=== PATIENT | female | born 1990 | race Caucasian/White ===

== ENCOUNTER 2016-11-20 18:04 | Inpatient (IN) | payer OTHER ==
[~2016-11-20] VITALS: Ht 172.7 cm; Wt 113.4 kg
[2016-11-20] MEDS ORDERED: LIDOCAINE HCL 1% 50 ML VIAL INFIL PRN (19:15)
[2016-11-20] MEDS ORDERED: OXYTOCIN 30 UNITS-500ML PREMIX 500 ML IV ONE (19:15)
[2016-11-20] MEDS ORDERED: LIDOCAINE HCL 1% 50 ML VIAL I-DERMAL PRN (19:15)
[2016-11-20] MEDS ORDERED: ONDANSETRON HCL 4 MG/2 ML VIAL IV PRN (19:15)
[2016-11-20] MEDS ORDERED: SODIUM CHLORID 0.9% 500 ML INJ 500 ML IV PRN (19:15)
[2016-11-20] MEDS ORDERED: CITRIC ACID-SODIUM CITRATE LIQ 30 ML UDC PO SCH (19:15)
[2016-11-20] MEDS ORDERED: MINERAL OIL 10 ML VIAL TOPICAL PRN (19:15)
[2016-11-20] MEDS ORDERED: LACTATED RINGER'S 1000 ML INJ 1,000 ML IV PRN (19:15)
--- NOTE | 2016-11-20 19:19 | HHI.HP ---
HPI Chief Complaint scheduled term labor induction, non-reassuring testing in office Date Seen: Nov 20, 2016 Time Seen: 18:45 Travel History International Travel<30 Days: No Contact w/Intl Traveler<30Days: No Known Affected Area: No History of Present Illness HPI 26 yo with EDC 11/24/16, late transfer () to our practice at 37w2d. On initial office evaluation on 11/05/16 EFW 96.7%tile and borderline polyhydramnios. Due to this finding patient was scheduled for weekly testing, today in office abnormal dopplers, slightly increased flow, but 8/8 BPP. Discussed findings with patient and her , counseled on need for labor induction and risk of failed induction, risk of failure, especially given size greater than dates, primiparous status, and suspected CPD. Pt has no complaints other than pelvic pressure, has no regular contractions, no VB, reports good movement. Pain 2/10. Para: 0 : 2 Miscarriage: 0 : 0 History Past Medical History Narrative Medical obesity Past Surgical History Surgical History: No Previous Surgery Family History Family History: Negative Social History Alcohol Use: No Tobacco Use: No Substance Abuse: No Allergies-Medications (Allergen,Severity, Reaction): Coded Allergies: No Known Allergies (Unverified , 11/20/16) Review of Systems General / Constitutional: Weight Gain, No: Fever, Chills, Other Eyes: No: Diploplia, Blurred Vision, Visual changes, Pain, Photophobia HENT: No: Headaches, Vertigo, Lightheadedness Cardiovascular: No: Irregular Rhythm, Chest Pain or Discomfort, Palpitations, Tachycardia, Syncope, Varicosities, Edema, Cyanosis Respiratory: No: Cough, Short of Breath, Other Gastrointestinal: No: Nausea, Vomiting, Diarrhea Genitourinary: Pelvic Pain, No: Decreased Urinary Output, Oliguria Musculoskeletal: No: Limited ROM, Weakness, Cramping, Edema, Pain Skin: No Rash, No Itching, No Dryness, No Lumps, No Change in Pigmentation, No Change in Nails, No Alopecia, No Lesions Neurologic: No: Weakness, Dizziness, Syncope, Focal Abnormalities, Coordination Problem, Headache, Slurred Speech, Seizures Psychiatric: No: Depression, Suicidal Ideations, Homicidal Ideation Endocrine: No: Heat Intolerance, Cold Intolerance, Polydipsia, Polyuria, Other Physical Exam see [facility] [place] Narrative GENERAL: Well-nourished, well-developed patient. SKIN: Warm and dry. HEAD: Normocephalic and atraumatic. EYES: No scleral icterus. No injection or drainage. ENT: No nasal drainage noted. Mucous membranes pink. Airway patent. NECK: Supple, trachea midline. No JVD. CARDIOVASCULAR: Regular rate and rhythm without murmurs, gallops, or rubs. RESPIRATORY: Breath sounds equal bilaterally. No accessory muscle use. BREASTS: deferred ABDOMEN/GI: Abdomen soft, non-tender, bowel sounds present, no rebound, no guarding Gravid to [40] weeks size Fundal Height: [41] GENITOURINARY: External Genitalia: intact and normal in appearance BUS glands: [wnl] Cervix: [posterior] Dilatation: [cl] Effacement: [th] Station: [-3] Presentation: [vtx] Membranes: [intact] Uterine Contractions: [irregular] FHT's: 8/8 BPP EXTREMITIES: No cyanosis or edema. BACK: Nontender without obvious deformity. No CVA tenderness. NEUROLOGICAL: Awake and alert. Motor and sensory grossly within normal limits. Five out of 5 muscle strength in all muscle groups. Normal speech. Data Data Vital Signs Reviewed: Yes Assessment/Plan Problem List: (1) Labor and delivery indication for care or intervention (2) macrosomia in in third trimester (3) Obesity complicating Assessment and Plan 26 yo with joseph IUP at 39w3d admit for term labor induction for abnormal testing in office 1) IOL: increased dopplers but 8/8 BPP; pt borderline polyhydramnios, S>D, narrow pelvis, pt aware of risk of failed induction and risk of need for ; will plan cervidil overnight and addt'l induction methods as needed in AM 2) GBS negative 3) S>D: EFW 8#4oz 2 weeks ago, aware 4) obese: normal 1h GTT 5) status: increased dopplers but 8/8 BPP, vertex, EFW >9# Discharge Planning routine for 2-3d PP Asia Cabrales MD Nov 20, 2016 19:19
[2016-11-20] MEDS ORDERED: SODIUM CHLOR 0.9% 1000 ML INJ 1,000 ML IV PRN (19:35)
[2016-11-20] MEDS: LACTATED RINGER'S 1000 ML INJ 1,000 ML IV SCH (19:43)
[2016-11-20] MEDS ORDERED: DINOPROSTONE 10 MG INSERT-LEAVE FOR 12 HOURS VAGINAL ONE (19:45)
[2016-11-20 19:52] LABS: AUTOMATED NEUTROPHIL # 8.5 TH/MM3 (1.8-7.7); BASOPHIL % 0.4 % (0.0-2.0); EOSINOPHIL # 0.1 TH/MM3 (0-0.4); EOSINOPHIL % 0.5 % (0.0-4.0); HEMATOCRIT 38.4 % (35.0-46.0); HEMO FLAGS DIFF FINAL; LYMPH % 22.3 % (9.0-44.0); LYMPHOCYTE # 2.8 TH/MM3 (1.0-4.8); MEAN CELL VOLUME 90.5 FL (80.0-100.0); MEAN CORPUSCULAR HEMOGLOBIN 29.9 PG (27.0-34.0); MEAN CORPUSCULAR HGB CONC 33.1 % (32.0-36.0); MONO % 7.7 % (0.0-8.0); NEUT % 69.1 % (16.0-70.0); PLATELET COUNT 308 TH/MM3 (150-450); RED BLOOD COUNT 4.25 MIL/MM3 (4.00-5.30); RED CELL DISTRIBUTION WIDTH 13.9 % (11.6-17.2); WHITE BLOOD COUNT 12.4 TH/MM3 (4.0-11.0)
[2016-11-20 19:56] VITALS: BP 139/86; PULSE 72
[2016-11-20 20:00] VITALS: RESP 20; TEMP 98.4
[2016-11-20 20:02] LABS: BLOOD, URINE MOD (NEG); CALCIUM OXALATE CRYSTALS,URINE FEW /hpf; COMMENT (UR) CULTURE INDICATED; CULTURE IF INDICATED CULTURE INDICATED; GLUCOSE,URINE NEG (NEG); KETONE, URINE NEG (NEG); MUCUS URINE FEW /lpf (OCC); NITRITE,URINE NEG (NEG); SQUAMOUS EPITHELIAL CELL URINE 1 /hpf (0-5); URINE COLOR YELLOW (YELLW/STRAW)
[2016-11-20] MEDS ORDERED: ZOLPIDEM TARTRATE 10 MG TAB PO PRN (21:00)
[2016-11-20 21:15] VITALS: RESP 18
[2016-11-20 21:54] VITALS: BP 116/65; PULSE 64
[2016-11-20 21:55] VITALS: RESP 18; TEMP 98.7
[2016-11-20] MEDS ORDERED: PREN29TA PO (22:02)
[2016-11-21] VITALS (66 sets, daily range): BP systolic 94–147; BP diastolic 47–99; PULSE 50–89; RESP 12–24; TEMP 98.1–99.5; O2SAT 93–100
[2016-11-21] MEDS ORDERED: ACETAMINOPHEN 325 MG TAB PO PRN ×2 (02:15→20:30)
[2016-11-21] MEDS ORDERED: fentaNYL 2MCG-BUPIV 0.125% INJ 100 ML ONE ×2 (03:01→09:48)
[2016-11-21] MEDS: LACTATED RINGER'S 1000 ML INJ 1,000 ML IV SCH ×2 (07:55→13:45)
[2016-11-21] MEDS ORDERED: OXYTOCIN 30 UNITS/NS 500ML PREMIX IV SCH (09:00)
[2016-11-21] MEDS ORDERED: DO NOT ADMINISTER ANTICOAGULANTS PRN (10:15)
[2016-11-21] MEDS ORDERED: ePHEDrine/NS 25 MG/5 ML SYR IV PRN (10:15)
[2016-11-21] MEDS ORDERED: NO SYSTEM NARCOTICS PRN (10:15)
[2016-11-21] MEDS: fentaNYL 2MCG-BUPIV 0.125% 100 ML EPIDURAL SCH ×2 (10:51→15:03)
--- NOTE | 2016-11-21 14:01 | PD.LABORPN ---
Subjective Subjective pt feeling back pain Objective Vital Signs Vital Signs Date Time Temp Pulse Resp B/P Pulse Ox O2 Delivery O2 Flow Rate FiO2 11/21/16 13:31 62 120/73 11/21/16 13:00 75 138/84 11/21/16 12:39 98.1 11/21/16 12:31 76 121/74 11/21/16 12:01 66 131/77 11/21/16 11:31 61 124/73 11/21/16 11:01 67 113/74 11/21/16 10:51 16 11/21/16 10:31 63 118/68 11/21/16 10:00 69 132/92 11/21/16 09:45 16 11/21/16 09:45 98.3 11/21/16 09:31 80 121/82 11/21/16 09:01 77 129/76 11/21/16 08:30 80 138/90 11/21/16 08:01 78 124/87 11/21/16 07:31 87 127/87 11/21/16 06:37 18 11/21/16 06:30 82 11/21/16 06:30 115/81 11/21/16 06:00 70 132/80 Objective Pelvic Exam: Cervix: 860/-2 Presentation:ceph Membranes: [ ruptured] Uterine Contractions:adequate mvu FHT's: Category: I Baseline: 1330 Reactive:y Variability:mod Decels: [-] Bloody urine Assessment/Plan Problem List: (1) Labor and delivery indication for care or intervention (2) macrosomia in in third trimester (3) Obesity complicating Assessment and Plan 26 yo with joseph IUP at 39w4d admit for term labor induction for abnormal testing in office 1) IOL: increased dopplers but 8/8 BPP; pt borderline polyhydramnios, S>D, narrow pelvis, pt aware of risk of failed induction and risk of need for . Pt declined primary cd and elected induction. She is s/p cervidil, arom, and is on pitocin now. She is 8/60/-2, head is not applied to cervix. Discussed failure of descent may be likely. 3) S>D: EFW 8#4oz 2 weeks ago, aware 4) obese: normal 1h GTT 5) status: increased dopplers but 8 BPP, vertex, EFW >9# Rosa Mcgregor MD Nov 21, 2016 14:01
[2016-11-21] MEDS ORDERED: LACTATED RINGER'S 1000 ML INJ 1,000 ML IV ONE ×2 (15:06→20:59)
[2016-11-21] MEDS ORDERED: LACTATED RINGER'S 1000 ML INJ 1,000 ML IV SCH (15:36)
[2016-11-21] MEDS ORDERED: ceFAZolin 2 GM PREMIX 50 ML IV SCH (16:15)
[2016-11-21] MEDS ORDERED: CITRIC ACID-SODIUM CITRATE LIQ 30 ML UDC PO SCH (16:45)
[2016-11-21] MEDS ORDERED: OXYTOCIN 10 UNIT/ML AMP ONE (19:17)
[2016-11-21] MEDS ORDERED: ONDANSETRON HCL 4 MG/2 ML VIAL ONE (19:17)
[2016-11-21] MEDS ORDERED: ACETAMINOPHEN 1000 MG/100 ML VIAL IV ONE ×2 (19:17→20:30)
[2016-11-21] MEDS ORDERED: METHYLERGONOVINE MALEATE 0.2 MG/ML VIAL ONE (19:49)
[2016-11-21] MEDS ORDERED: MISOPROSTOL 200 MCG TAB ONE (19:49)
[2016-11-21] MEDS ORDERED: EPIDURAL-NO SYSTEMIC NARCOTICS PRN (20:00)
[2016-11-21] MEDS ORDERED: EPIDURAL-NALOXONE HCL 0.4 MG/ML AMP IV PRN (20:00)
[2016-11-21] MEDS ORDERED: EPIDURAL-DIPHENHYDRAMINE HCL 50 MG/ML VIAL IV PUSH PRN (20:00)
[2016-11-21] MEDS ORDERED: EPIDURAL-DO NOT ADMINISTER ANTICOAGULANTS PRN (20:00)
[2016-11-21] MEDS ORDERED: EPIDURAL-DIPHENHYDRAMINE HCL 50 MG CAP PO PRN (20:00)
--- NOTE | 2016-11-21 20:22 | PD.OB.DELI ---
Procedure Note Section Procedure Pre Op Diagnosis: (1) Arrested labor (2) Obesity complicating Post Op Diagnosis: (1) Arrested labor (2) Obesity complicating Performed by Rosa Mcgregor Procedure: Primary Low Transverse Sec Indication for delivery: malposition (OP), Other (arrest of dilation) Informed consent obtained: For anesthesia, For procedure Confirmed correct: Patient, Procedure, Site, Time-out taken Anesthesia: Epidural Medication prior to procedure: As documented in eMAR Monitoring during procedure: Blood pressure monitoring, Pulse oximetry Urinary catheter: ml urine output (200) Sterile preparation: Duraprep Position: Supine with wedge to right side, Supine with safety belt applied Operative Features Skin Incision: Pfannenstiel Uterine Incision: Low transverse w/knife / blunt ext Membranes Ruptured: Previously, Appearance of fluid (clear) Presentation: Occiput posterior (asynclitic ) Delivery of : Uneventful : Male One Minute : 9 Five Minute : 9 Weight: 8 lb Status of infant: Viable Placenta delivered: Intact Medications: Antibiotics, Oxytocin, Ergot derivatives Estimated blood loss: 300ml Procedure tolerated: Well Maternal Complications: Uterine atony (methergine given) Maternal Condition: Stable Condition: Stable Procedure in detail dictated Rosa Mcgregor MD Nov 21, 2016 20:22
[2016-11-21] MEDS ORDERED: OXYTOCIN 30 UNITS-500ML PREMIX 500 ML IV ONE (20:30)
[2016-11-21] MEDS ORDERED: ONDANSETRON HCL 4 MG/2 ML VIAL IV PUSH PRN (20:30)
[2016-11-21] MEDS ORDERED: SODIUM CHLORIDE 0.9% FLUSH 10 ML FLUSH IV FLUSH PRN (20:30)
[2016-11-21] MEDS ORDERED: oxyCODONE/ACETAMINOPHEN 5 MG/325 MG TAB PO PRN (20:30)
[2016-11-21] MEDS ORDERED: ZOLPIDEM TARTRATE 5 MG TAB PO PRN (20:30)
[2016-11-21] MEDS ORDERED: DOCUSATE SODIUM 50 MG/SENNA 8.6 MG TAB PO PRN (20:30)
[2016-11-21] MEDS ORDERED: MORPHINE SULFATE PF 5 MG/10 ML VIAL ONE (20:31)
[2016-11-21] MEDS ORDERED: fentaNYL CITRATE 250 MCG/5 ML AMP ONE (20:31)
[2016-11-21] MEDS ORDERED: LIDOCAINE HCL 2% 20 ML VIAL NERV BLOCK ONE (20:59)
[2016-11-21] MEDS ORDERED: SODIUM BICARBONATE 8.4% INJ 50 MEQ/50 ML SYR IV ONE (20:59)
[2016-11-21] MEDS ORDERED: PROPOFOL 200 MG/20 ML AMP IV ONE (20:59)
[2016-11-21] MEDS ORDERED: SODIUM CHLORIDE 0.9% FLUSH 10 ML FLUSH IV FLUSH SCH (21:00)
[2016-11-21] MEDS ORDERED: OXYTOCIN 30 UNITS-500ML PREMIX 500 ML ONE (21:05)
[2016-11-22] MEDS ORDERED: LACTATED RINGER'S 1000 ML INJ 1,000 ML IV SCH (01:30)
[2016-11-22 03:10] VITALS: BP 116/70; PULSE 59; RESP 18; TEMP 99.3; O2SAT 96
[2016-11-22] MEDS: oxyCODONE/ACETAMINOPHEN 5 MG/325 MG TAB PO PRN ×4 (05:27→20:46)
[2016-11-22] MEDS: IBUPROFEN 600 MG TAB PO PRN ×3 (05:27→20:46)
[2016-11-22 05:58] LABS: AUTOMATED NEUTROPHIL # 17.3 TH/MM3 (1.8-7.7); BASOPHIL % 0.1 % (0.0-2.0); HEMATOCRIT 33.5 % (35.0-46.0); HEMO FLAGS DIFF FINAL; LYMPH % 9.4 % (9.0-44.0); LYMPHOCYTE # 1.9 TH/MM3 (1.0-4.8); MEAN CELL VOLUME 89.2 FL (80.0-100.0); MEAN CORPUSCULAR HEMOGLOBIN 30.1 PG (27.0-34.0); MEAN CORPUSCULAR HGB CONC 33.8 % (32.0-36.0); MONO % 6.6 % (0.0-8.0); NEUT % 83.9 % (16.0-70.0); PLATELET COUNT 250 TH/MM3 (150-450); RED BLOOD COUNT 3.76 MIL/MM3 (4.00-5.30); RED CELL DISTRIBUTION WIDTH 14.3 % (11.6-17.2); WHITE BLOOD COUNT 20.6 TH/MM3 (4.0-11.0)
[2016-11-22] MEDS ORDERED: OXYTOCIN 30 UNITS-500ML PREMIX 500 ML IV PRN (06:30)
[2016-11-22 09:00] VITALS: BP 115/74; PULSE 76; RESP 16; TEMP 98.7
--- NOTE | 2016-11-22 11:19 | HHI.OB ---
Subjective Post Operative Day: 1 Remarks eating well, min ambulation. she has voided, no flatus yet Objective Vitals/I&O Vital Signs Date Time Temp Pulse Resp B/P Pulse Ox O2 Delivery O2 Flow Rate FiO2 11/22/16 09:00 76 16 115/74 11/22/16 09:00 98.7 11/22/16 03:10 99.3 96 11/22/16 03:10 59 18 116/70 11/21/16 23:00 98.1 61 18 140/90 96 11/21/16 22:40 99.5 62 18 126/92 11/21/16 21:59 96 11/21/16 21:55 63 18 11/21/16 21:55 133/75 11/21/16 21:54 98.7 11/21/16 21:51 95 11/21/16 21:40 130/75 11/21/16 21:40 50 18 93 11/21/16 21:25 61 18 95 11/21/16 21:25 135/81 11/21/16 21:10 127/68 11/21/16 21:10 71 18 95 11/21/16 20:55 72 18 118/65 96 11/21/16 20:40 77 18 133/82 97 11/21/16 20:25 98.4 83 12 100 11/21/16 20:25 107/55 11/21/16 19:02 59 119/63 11/21/16 18:45 24 11/21/16 18:31 54 115/62 11/21/16 17:31 57 131/72 11/21/16 17:00 72 135/86 11/21/16 16:31 72 134/84 11/21/16 15:31 68 147/88 11/21/16 15:09 99.0 18 11/21/16 15:03 18 11/21/16 15:01 61 144/90 11/21/16 14:31 55 138/86 11/21/16 14:01 76 118/88 11/21/16 13:31 62 120/73 11/21/16 13:00 75 138/84 11/21/16 12:39 98.1 11/21/16 12:31 76 121/74 11/21/16 12:01 66 131/77 11/21/16 11:31 61 124/73 Result Diagram: 11/22/16 0459 Objective Remarks GENERAL: Well-nourished, well-developed patient. CARDIOVASCULAR: Regular rate and rhythm without murmurs, gallops, or rubs. RESPIRATORY: Breath sounds equal bilaterally. No accessory muscle use. ABDOMEN/GI: Abdomen soft, non-tender, bowel sounds present. Incision:dressing Clean, dry and intact. Fundus: Firm, non-tender at umbilicus. GENITOURINARY: Light to moderate bleeding. EXTREMITIES: No cyanosis or edema, non-tender, without signs of DVT. Medications and IVs Current Medications Medications (Trade) Dose Ordered Sig/Daniella Route Start Time Stop Time Status Last Admin (Lr 1000 ml Inj) 1,000 ml @ 100 mls/hr Q10H IV 11/22/16 01:30 11/22/16 21:29 11/22/16 03:18 (NS Flush) 2 ml BID IV FLUSH 11/21/16 21:00 (NS Flush) 2 ml UNSCH PRN IV FLUSH 11/21/16 20:30 (Mylicon Chew) 80 mg QID PRN PO 11/21/16 20:30 (Tylenol) 650 mg Q6H PRN PO 11/21/16 20:30 (Motrin) 600 mg Q6H PRN PO 11/21/16 20:30 11/22/16 05:27 (Percocet 5-325 Mg) 1 tab Q4H PRN PO 11/21/16 20:30 11/22/16 05:27 (Percocet 5-325 Mg) 2 tab Q4H PRN PO 11/21/16 20:30 11/22/16 10:47 (Lianna-Colace) 2 tab Q12H PRN PO 11/21/16 20:30 (Ambien) 5 mg HS PRN PO 11/21/16 20:30 (M-M-R Ii Inj) 0.5 ml ONCE ONCE SQ 11/22/16 16:00 11/22/16 16:01 (Boostrix Inj) 0.5 ml ONCE ONCE IM 11/22/16 16:00 11/22/16 16:01 (Zofran Inj) 4 mg Q6H PRN IV PUSH 11/21/16 20:30 Miscellaneous Information NO SYSTEMIC NARCOTICS TO BE GIVEN FO... UNSCH PRN .XX 11/21/16 20:00 11/22/16 19:59 (Narcan Inj) 0.4 mg UNSCH PRN IV 11/21/16 20:00 11/22/16 19:59 (Benadryl Inj) 25 mg Q6H PRN IV PUSH 11/21/16 20:00 11/22/16 19:59 11/22/16 00:21 (Benadryl) 50 mg Q6H PRN PO 11/21/16 20:00 11/22/16 19:59 Miscellaneous Information ALL NURSING DEPARTMENTS UNSCH PRN .XX 11/21/16 20:00 11/22/16 19:59 Assessment/Plan Problem List: (1) Labor and delivery indication for care or intervention (2) macrosomia in in third trimester (3) Obesity complicating Assessment and Plan 26 yo [id number] primary cd for arrest of descent, cpd POD 1- cont routine care, encourage ambulation, adv diet Discharge Planning routine for 2-3d PP Rosa Mcgregor MD Nov 22, 2016 11:19
[2016-11-22 15:00] VITALS: BP 115/74; PULSE 76; RESP 16; TEMP 98.7
[2016-11-22] MEDS ORDERED: MEASLES, MUMPS, RUBELLA VACCINE 0.5 ML VIAL SQ ONE (16:00)
[2016-11-22] MEDS ORDERED: DIPHTH/TETANUS/ACEL PERTUSSIS (BOOSTER) 0.5 ML VIAL/PFS IM ONE (16:00)
[2016-11-22] MEDS: SIMETHICONE 80 MG CHEWABLE TAB PO PRN (16:40)
[2016-11-22 20:45] VITALS: BP 104/63; PULSE 72; RESP 18; TEMP 98.4
[2016-11-22 21:00] VITALS: PULSE 72; RESP 18; TEMP 98.4
[2016-11-23] MEDS: oxyCODONE/ACETAMINOPHEN 5 MG/325 MG TAB PO PRN ×2 (06:02→11:59)
[2016-11-23] MEDS: IBUPROFEN 600 MG TAB PO PRN ×2 (06:03→11:59)
[2016-11-23] MEDS: SIMETHICONE 80 MG CHEWABLE TAB PO PRN (06:03)
[2016-11-23 08:03] VITALS: BP 116/73; PULSE 73; RESP 16; TEMP 98.3
--- NOTE | 2016-11-23 08:21 | HHI.OB ---
Subjective Post Operative Day: 2 Remarks doing well, desires discharge today Objective Vitals/I&O Vital Signs Date Time Temp Pulse Resp B/P Pulse Ox O2 Delivery O2 Flow Rate FiO2 11/22/16 21:00 72 18 11/22/16 21:00 98.4 11/22/16 20:45 104/63 11/22/16 20:45 98.4 72 18 11/22/16 15:00 98.7 76 16 115/74 11/22/16 09:00 76 16 115/74 11/22/16 09:00 98.7 Result Diagram: 11/22/16 0459 Objective Remarks GENERAL: Well-nourished, well-developed patient. CARDIOVASCULAR: Regular rate and rhythm without murmurs, gallops, or rubs. RESPIRATORY: Breath sounds equal bilaterally. No accessory muscle use. ABDOMEN/GI: Abdomen soft, non-tender, bowel sounds present. Incision: Clean, dry and intact. Fundus: Firm, non-tender at umbilicus. GENITOURINARY: Light to moderate bleeding. EXTREMITIES: No cyanosis or edema, non-tender, without signs of DVT. Medications and IVs Current Medications Medications (Trade) Dose Ordered Sig/Daniella Route Start Time Stop Time Status Last Admin (NS Flush) 2 ml BID IV FLUSH 11/21/16 21:00 (NS Flush) 2 ml UNSCH PRN IV FLUSH 11/21/16 20:30 (Mylicon Chew) 80 mg QID PRN PO 11/21/16 20:30 11/23/16 06:03 (Tylenol) 650 mg Q6H PRN PO 11/21/16 20:30 (Motrin) 600 mg Q6H PRN PO 11/21/16 20:30 11/23/16 06:03 (Percocet 5-325 Mg) 1 tab Q4H PRN PO 11/21/16 20:30 11/23/16 06:02 (Percocet 5-325 Mg) 2 tab Q4H PRN PO 11/21/16 20:30 11/22/16 10:47 (Lianna-Colace) 2 tab Q12H PRN PO 11/21/16 20:30 11/22/16 16:40 (Ambien) 5 mg HS PRN PO 11/21/16 20:30 (Zofran Inj) 4 mg Q6H PRN IV PUSH 11/21/16 20:30 Assessment/Plan Problem List: (1) Labor and delivery indication for care or intervention (2) macrosomia in in third trimester (3) Obesity complicating Assessment and Plan 26 yo [id number] primary cd for arrest of descent, cpd POD 2- cont routine care, encourage ambulation, adv diet Discharge Planning routine for 2-3d PP Attending Attestation pt seen by Daija Donato MD Nov 23, 2016 08:21
[2016-11-23] MEDS ORDERED: SENN1TAB PO (08:23)
[2016-11-23] MEDS ORDERED: IBUP-232 PO (08:23)
[2016-11-23] MEDS ORDERED: OXYC1TAB63 PO (08:23)
--- NOTE | 2016-11-23 08:24 | HHI.DCPOC ---
Discharge Care Plan Your Health Problems Are: Pelvic pain Report Symptoms to Your Doctor -Temperature above 100.5 degrees -Redness, of incision or excessive or foul smelling drainage -Unusual pain or calf pain -Increased vaginal bleeding -Painful or difficulty urinating -Feelings of extreme sadness or anxiety after 2 weeks Goals to Promote Your Health * To prevent worsening of your condition and complications * To maintain your health at the optimal level Directions to Meet Your Goals Take your medications as prescribed Follow your dietary instruction Follow activity as directed Ensure plenty of rest for recovery Drink fluids for hydration Keep your appointments as scheduled Take your immunizations and boosters as scheduled If your symptoms worsen call your PCP, if no PCP go to Urgent Care Center or Emergency Room Smoking is Dangerous to Your Health. Avoid second hand smoke Call the 24-hour crisis hotline for domestic abuse at Daija Chester MD Nov 23, 2016 08:24
--- NOTE | 2016-11-24 11:34 | MP ---
cc: ROSA MCGREGOR MD DATE OF SURGERY: 11/21/2016 PREOPERATIVE DIAGNOSIS 1. Intrauterine at 39 weeks and 4 days. 2. Arrest of descent. 3. Obesity. 4. Suspected cephalopelvic disproportion. POSTOPERATIVE DIAGNOSIS 1. Intrauterine at 39 weeks and 4 days. 2. Arrest of descent. 3. Obesity. 4. Suspected cephalopelvic disproportion. PROCEDURE Primary low transverse delivery. SURGEON Rosa Mcgregor MD [employer]. INDICATION The patient is a 26-year-old, G2, P-0-0-1-0, with an intrauterine at 39 weeks and 4 days. She was seen in the office today for BPP. She was noted to have borderline polyhydramnios with an LAMIN of 24, BPP 8/8, but abnormal Dopplers were noted at that time. There was suspicion of macrosomia with an ultrasound indicating estimated weight being greater than 95th percentile. The findings as well as her narrow pelvis were discussed with the patient and . They were offered a primary delivery and declined, elected to have an induction. The patient was induced with Cervidil and subsequent AROM and Pitocin. She had full dilation but did not have descent. station was -1 to 0 and the fetus had molding on exam and presentation was OP with asynclitism. The patient had two hours of attempted pushing effort with no descent. I discussed cephalopelvic disproportion with her and family and they agreed with a delivery. ANESTHESIA Epidural. IV FLUIDS One liter. URINE OUTPUT 150 mL. Of note, the urine was bloody throughout labor. ESTIMATED BLOOD LOSS 300 mL. ANTIBIOTICS Ancef 2 grams IV given pre incision. DVT PROPHYLAXIS SCDs to bilateral extremities. COMPLICATIONS Initial poor uterine tone, therefore Methergine was given immediately after delivery of the fetus. INTRAOPERATIVE FINDINGS A viable male with Apgars of 9 and 9 at one and five minutes respectively. weight 8 pounds. Presentation was occiput posterior with asynclitism. Three-vessel cord. Placenta intact. Maternal findings of normal tubes and ovaries. Initial uterine atony. Good tone after a dose of Methergine. Narrow pelvis. SPECIMEN Cord blood. COUNTS Counts correct x3. DISPOSITION Stable to PACU. PROCEDURE IN DETAIL After reviewing the informed consent the patient was taken to the operating room where the epidural was redosed. The Mari was already in place. The abdomen was prepped and draped in normal sterile fashion. Anesthesia was not adequate. The patient was given additional IV medication until she felt comfortable. A Pfannenstiel skin incision was made with a scalpel and carried down to the underlying layer of fascia with the Bovie. The fascial incision was extended bilaterally with Franks scissors. The superior aspect of the fascia was grasped with Katiuska clamps, elevated and the rectus muscle dissected off bluntly as well as with Franks scissors. It was then repeated inferiorly. The rectus muscles were in the midline and the peritoneum was entered bluntly. The peritoneal opening was extended bluntly and a bladder blade was inserted. A bladder flap was created with Metzenbaum scissors and further extended digitally. The bladder blade was then repositioned. A low transverse uterine incision was made with a scalpel and extended bluntly. The head was very low in the pelvis and was suctioned to the pelvic sidewall. The suction was released. The head was elevated to the level of the hysterotomy while being flexed and then fundal pressure was used to deliver the head. The rest of the body readily followed. The cord was doubly clamped and cut. The baby was bulb suctioned and handed off to the awaiting nursery team. IV infusion of Pitocin was started immediately after delivery of the . Gentle uterine massage and cord traction was used to deliver the placenta. The uterus was exteriorized and noted to have very poor tone. Methergine 0.2 mg was also given. The uterus was repaired in two layers, first with a running lock stitch of #1 chromic and then an imbricating layer. The hysterotomy was noted to be hemostatic. The posterior cul-de-sac was irrigated and suctioned. The uterus was returned to the abdomen. Good hemostasis was noted. The fascia was closed with #1 Vicryl. The subcutaneous tissue was irrigated and suctioned. Hemostasis was obtained with the Bovie. The subcutaneous tissue was closed with 2-0 chromic in a running fashion. The skin was closed with 3-0 Monocryl in subcuticular fashion. The patient tolerated the procedure well. She was sent to PACU in stable condition. MD CEASAR King /8:29 PM /11:21 AM
== END 2016-11-23 13:36 | disposition home or self-care (01) | DRG 766 ==
LOC: H2EB 18:04 → H1EA 11-21 22:25
PROVIDERS: ADMIT Obstetrics & Gynecology; ATTEND Obstetrics & Gynecology
PROC: 00HU33Z Insertion of Infusion Device into Spinal Canal, Percutaneous Approach (ICD-10-PCS; 2016-11-20)
PROC: 3E0R3CZ (ICD-10-PCS; 2016-11-20)
PROC: 10D00Z1 Extraction of Products of Conception, Low, Open Approach (ICD-10-PCS; principal; 2016-11-21)
DX: O40.3XX0 Polyhydramnios, third trimester, not applicable or unspecified (principal); E66.9 Obesity, unspecified; O99.214 Obesity complicating childbirth; O62.0 Primary inadequate contractions; O32.8XX1 Maternal care for other malpresentation of fetus, fetus 1; O75.89 Other specified complications of labor and delivery; O62.1 Secondary uterine inertia; O33.9 Maternal care for disproportion, unspecified; Z37.0 Single live birth; Z3A.37 37 weeks gestation of pregnancy
CPT/HCPCS: 81001; 85025; 86850; 86900; 86901; 87086; J0131; J0690; J1200; J2210; J2274; J2405; J2590; J3010; J7120